=== PATIENT | male | born 1995 | race Caucasian/White ===

== ENCOUNTER 2019-10-09 00:58 | Emergency (ER) | payer OTHER ==
[2019-10-09 01:20] LABS: MUDS CUTOFF CONCENTRATIONS CUTOFF CONC BELOW:
[2019-10-09 01:31] LABS: AMPHETAMINE SCREEN,URINE NEGATIVE (NEGATIVE); BENZODIAZEPINES SCREEN, URINE NEGATIVE (NEGATIVE); COCAINE SCREEN URINE NEGATIVE (NEGATIVE); METHADONE SCREEN, URINE NEGATIVE (NEGATIVE); METHAMPHETAMINES SCREEN, URINE NEGATIVE (NEGATIVE); OPIATE SCREEN, URINE NEGATIVE (NEGATIVE); OXYCODONE SCREEN, URINE NEGATIVE (NEGATIVE); PROPOXYPHENE SCREEN, URINE NEGATIVE (NEGATIVE); TRICYCLIC ANTIDEPRESSANT,URINE NEGATIVE (NEGATIVE)
--- NOTE | 2019-10-09 01:38 | ED Physician Documentation ---
<Raymundo Ann - Last Filed: 10/09/19 06:56> History of Present Illness - Stated complaint Stated Complaint: ETOH - Chief complaint Chief Complaint: MHE - History obtained from History obtained from: Patient, EMS - History of Present Illness Timing: Today - Additonal information Additional information: patient arrives intoxicated, tells me "I drank too much". He is [employer] and is accompanied by command who says patient's friends had expressed concern regarding a note patient showed to them earlier tonight. Patient says he doesn't remember what he wrote in the note but recalls showing it to friends. Patient eventually tells me the content of the note was "a cry for help, I guess" (per patient), but he still says he cannot recall what he wrote. Furthermore, he does not have this note on him and command did not see the note, either. Patient eventually admits to feeling depressed but he is vague and not forthcoming with information. Review of Systems Psychiatric: reports: Depressed, Other (will not provide answers when I ask if he is suicidal or having thoughts of self-harm). denies: Homicidal, Hallucinations, Delusions, Anxiety PD PAST MEDICAL HISTORY - Past Medical History Past Medical History: No - Past Surgical History Past Surgical History: No - Present Medications Home Medications: Ambulatory Orders Medication Instructions Recorded Confirmed No Known Home Medications 10/09/19 10/09/19 - Allergies Allergies/Adverse Reactions: Allergies Allergy/AdvReac Type Severity Reaction Status Date / Time No Known Drug Allergies Allergy Verified 10/09/19 01:28 - Social History Does the pt smoke?: Yes Smoking Status: Current every day smoker Does the pt drink ETOH?: Yes ETOH Use: Beer, Liquor Does the pt have substance abuse?: No - Immunizations Immunizations are current?: Yes - POLST Patient has POLST: No PD ED PE NORMAL - Vitals Vital signs reviewed: Yes - General General: Alert and oriented X 3, No acute distress, Well developed/nourished - HEENT HEENT: Moist mucous membranes - Cardiac Cardiac: RRR, No murmur - Respiratory Respiratory: No respiratory distress, Clear bilaterally - Abdomen Abdomen: Soft, Non tender PD MEDICAL DECISION MAKING - ED course Complexity details: reviewed results, re-evaluated patient, considered differential, d/w patient ED course: Patient is calm and polite. He admits to feeling depressed but is vague regarding thoughts of self-harm. Command is able to provide a picture of the note that patient admits to having written yesterday; the note was torn into several pieces, but it is mostly legible and indicates patient wants help for what he thinks might be depression. Held for SW consult in AM; case turned over to Dr. Nj at end of my shift Departure - Departure Disposition: 01 Home, Self Care Clinical Impression: Depression Qualifiers: Depression Type: major depressive disorder Major depression recurrence: recurrent Active/Remission status: currently active Major depression episode severity: moderate Qualified Code(s): F33.1 - Major depressive disorder, recurrent, moderate Condition: Stable Instructions: ED Depression Follow-Up: [facility] Sony Dickens [Provider Group] Comments: Follow-up at [facility] as instructed by the rider ticket worker. <Justus Nj - Last Filed: 10/09/19 11:18> Results - Vitals Vitals: Vital Signs - 24 hr 10/09/19 10/09/19 10/09/19 00:58 06:15 11:01 Temperature 36.9 C 36.4 C L 36.7 C Heart Rate 105 H 95 82 Respiratory 16 16 18 Rate Blood Pressure 139/84 H 115/65 137/74 H O2 Saturation 99 98 99 Oxygen O2 Source Room air - Labs Labs: Laboratory Tests 10/09/19 10/09/19 10/09/19 01:15 01:27 01:27 WBC 6.6 RBC 5.33 Hgb 15.9 Hct 45.6 MCV 85.6 MCH 29.8 MCHC 34.9 RDW 12.5 Plt Count 209 MPV 11.1 Neut # (Auto) 3.6 Lymph # (Auto) 2.2 Wythe # (Auto) 0.6 Eos # (Auto) 0.2 Baso # (Auto) 0.1 Absolute Nucleated RBC 0.00 Nucleated RBC % 0.0 Sodium Potassium Chloride Carbon Dioxide Anion Gap BUN Creatinine Estimated GFR (MDRD) Glucose Calcium Salicylates Urine Opiates Screen NEGATIVE Ur Oxycodone Screen NEGATIVE Urine Methadone Screen NEGATIVE Ur Propoxyphene Screen NEGATIVE Acetaminophen Ur Barbiturates Screen NEGATIVE Ur Tricyclics Screen NEGATIVE Ur Phencyclidine Scrn NEGATIVE Ur Amphetamine Screen NEGATIVE U Methamphetamines Scrn NEGATIVE U Benzodiazepines Scrn NEGATIVE Urine Cocaine Screen NEGATIVE U Cannabinoids Screen NEGATIVE Ethyl Alcohol 164.3 10/09/19 10/09/19 01:27 05:37 WBC RBC Hgb Hct MCV MCH MCHC RDW Plt Count MPV Neut # (Auto) Lymph # (Auto) Wythe # (Auto) Eos # (Auto) Baso # (Auto) Absolute Nucleated RBC Nucleated RBC % Sodium 139 Potassium 3.5 Chloride 103 Carbon Dioxide 25 Anion Gap 11.0 BUN 15 Creatinine 1.0 Estimated GFR (MDRD) 94 Glucose 109 H Calcium 8.9 Salicylates < 6.0 Urine Opiates Screen Ur Oxycodone Screen Urine Methadone Screen Ur Propoxyphene Screen Acetaminophen < 10 L Ur Barbiturates Screen Ur Tricyclics Screen Ur Phencyclidine Scrn Ur Amphetamine Screen U Methamphetamines Scrn U Benzodiazepines Scrn Urine Cocaine Screen U Cannabinoids Screen Ethyl Alcohol 80.2 PD MEDICAL DECISION MAKING - ED course ED course: 23-year-old male with a feeling of emptiness is calm and polite and no longer intoxicated. He is not currently suicidal he is asking for help with depression. He has never been treated previously he has never had counseling previously he indicates symptoms of been increased for the past 3 weeks. He does have some friends who were concerned about his case and brought it to the attention of his superiors and he has now been evaluated here in the emergency department by Dr. Ann and the social sciences lecturer has come in and made a safety plan with the patient including residing with his friends this weekend prior to initiation of counseling at [facility]. The patient is agreeable to the plan and denies any current suicidal ideation.
[2019-10-09 02:13] LABS: BASOPHILS # (AUTO) 0.1 10^3/uL (0.0-0.1); BASOPHILS % (AUTO) 0.8 %; EOSINOPHILS # (AUTO) 0.2 10^3/uL (0.0-0.7); EOSINOPHILS % (AUTO) 2.3 %; HGB - HEMOGLOBIN 15.9 g/dL (14.0-18.0); LYMPHOCYTES # (AUTO) 2.2 10^3/uL (1.5-3.5); LYMPHOCYTES % (AUTO) 33.3 %; MEAN CORPUSCULAR HEMOGLOBIN 29.8 pg (27.0-31.0); MEAN CORPUSCULAR HGB CONC 34.9 g/dL (32.0-36.0); MEAN CORPUSCULAR VOLUME 85.6 fL (80.0-94.0); MEAN PLATELET VOLUME 11.1 fL (7.4-11.4); MONOCYTES # (AUTO) 0.6 10^3/uL (0.0-1.0); MONOCYTES % (AUTO) 8.3 %; NEUTROPHILS # (AUTO) 3.6 10^3/uL (1.5-6.6); PLT - PLATELET COUNT 209 10^3/uL (130-450); RED BLOOD COUNT 5.33 10^6/uL (4.70-6.10); RED CELL DISTRIBUTION WIDTH 12.5 % (12.0-15.0); WHITE BLOOD COUNT 6.6 x10^3/uL (4.8-10.8)
[2019-10-09 02:22] LABS: ACETAMINOPHEN < 10 ug/mL (10-30); BUN - BLOOD UREA NITROGEN 15 mg/dL (6-20); CALCIUM 8.9 mg/dL (8.5-10.3); CARBON DIOXIDE - CO2 25 mmol/L (21-32); CHLORIDE 103 mmol/L (101-111); GFR - MDRD 94 (>89); GLUCOSE 109 mg/dL (70-100); SALICYLATE < 6.0 mg/dL; SODIUM 139 mmol/L (135-145)
[2019-10-09 11:02] VITALS: BP 137/74
== END 2019-10-09 11:37 | disposition home or self-care (01) ==
LOC: EDBD → ED 00:58
DX: F33.1 Major depressive disorder, recurrent, moderate (principal); F17.210 Nicotine dependence, cigarettes, uncomplicated
CPT/HCPCS: 36415; 80048; 80306; 80307; 80320; 80329; 85025; 99283